=== PATIENT | male | born 1965 | race Caucasian/White ===

== ENCOUNTER 2018-01-12 16:08 | Emergency (ER) | payer MEDICARE ==
[~2018-01-12] VITALS: Ht 170.2 cm; Wt 64.0 kg
[2018-01-12] MEDS ORDERED: NAPROXEN 500 MG TABLET PO STA (16:41)
[2018-01-12] MEDS ORDERED: HYDROcodone/APAP 5/325MG 1 TAB TABLET PO ONE (16:45)
--- NOTE | 2018-01-12 16:47 | PHYS DOC ---
Adult General Chief Complaint Chief Complaint: HAND PROBLEM HPI HPI Patient is a 52 year old male who presents with 6 out of 10 left wrist pain that began a couple minutes prior to coming to the ED. Patient describes the pain as sharp and constant. He states the pain is worse on range of motion. He states the pain began while he was playing baseball and collided with another player. Review of Systems Review of Systems Constitutional: Denies fever or chills [] Musculoskeletal: Reports left wrist pain Integument: Denies rash or skin lesions [] Neurologic: Denies headache, focal weakness or sensory changes [] All other systems were reviewed and found to be within normal limits, except as documented in this note. Current Medications Current Medications Current Medications Medications (Trade) Dose Ordered Sig/Denisa Start Time Stop Time Status Last Admin Dose Admin Acetaminophen/ Hydrocodone Bitart (Lortab 5/325) 2 tab 1X ONCE 01/12/18 16:45 01/12/18 16:46 DC 01/12/18 16:59 2 TAB Naproxen (Naprosyn) 500 mg 1X STAT 01/12/18 16:41 01/12/18 16:46 DC 01/12/18 17:00 500 MG Allergies Allergies Allergies Coded Allergies Type Severity Reaction Last Updated Verified No Known Drug Allergies 01/12/18 No Physical Exam Physical Exam Constitutional: Well developed, well nourished, no acute distress, non-toxic appearance. [] Skin: Warm, dry, no erythema, no rash. [] Back: No tenderness, no CVA tenderness. [] Extremities: Left wrist appears obviously deformed and soft tissue swelling. Moderate scaphoid and distal radius tenderness. Limited range of motion to the left wrist especially dorsiflexion of the wrist due to pain. Full range of motion to the left fingers. Adequate radial, medial, ulnar sensation to the left hand. +2 left radial pulse. Cap refill less than 2 seconds the left fingers. Neurologic: Alert and oriented X 3, normal motor function, normal sensory function, no focal deficits noted. [] Psychologic: Affect normal, judgement normal, mood normal. [] Current Patient Data Vital Signs Vital Signs Date Time Temp Pulse Resp B/P (MAP) Pulse Ox O2 Delivery O2 Flow Rate FiO2 01/12/18 16:44 98.4 80 16 134/89 (104) 98 Room Air 98.4 EKG EKG [] Radiology/Procedures Radiology/Procedures []PROCEDURE: HAND LEFT 3V Indication:hit by a fast ball to the wrist, wrist deformity TECHNIQUE: 3 views of left hand COMPARISON:None FINDINGS: There is a complete transverse fracture through the border aspect of the distal radius with extension to the radiocarpal joint and radioulnar joint. Wrist swelling noted. IMPRESSION: As above. Electronically signed by: Ramin Chauhan DO (01/12/2018 4:54 PM) [facility] DICTATED and SIGNED BY: RAMIN CHAUHAN DO DATE: 01/12/181651 Course & Med Decision Making Course & Med Decision Making Pertinent Labs and Imaging studies reviewed. (See chart for details) This is a 52-year-old male patient presenting to the ED today complaining of left wrist injury. Patient was playing baseball and collided with another player. X-ray of the left wrist interpreted a complete transverse fracture through the border aspect of the distal radius with extension to the radiocarpal joint and radioulnar joint. Patient was placed in a sugar tong splint by the behavioral health tech, neurovascular exam is intact, ice elevation encouraged. Provided instructions to call orthopedic doctor on Sunday and set up a follow-up appointment. Dragon Disclaimer Dragon Disclaimer This electronic medical record was generated, in whole or in part, using a voice recognition dictation system. Departure Departure Impression: Primary Impression: Left radial fracture Disposition: 01 HOME, SELF-CARE Condition: STABLE Referrals: UNKNOWN PCP NAME (PCP) LADONNA CABELLO II, MD Call his office on Sunday and set up a follow-up appointment Patient Instructions: Wrist Fracture with [facility] Additional Instructions: You were evaluated in the emergency room and noted for left wrist fracture. We put you in a splint. Contact the provided orthopedic doctor on Sunday and set up a follow-up appointment. Ice elevate the extremity. Take the prescribed medicine as needed for pain. Do not drive or operate machinery on the medication Scripts Hydrocodone/Apap 5-325 (NORCO 5-325 TABLET) 1 Each Tablet 1 TAB PO Q4-6HRS, #20 TAB Prov: OC CATHERINE LUCILA 01/12/18 Problem Qualifiers Primary Impression: Left radial fracture Encounter type: initial encounter Radius location: distal Fracture type: closed Fracture morphology: unspecified fracture morphology Qualified Codes: S52.502A - Unspecified fracture of the lower end of left radius, initial encounter for closed fracture OC CATHERINE APRN Jan 12, 2018 16:46
--- NOTE | 2018-01-12 16:57 | RAD ---
Indication:hit by a fast ball to the wrist, wrist deformity TECHNIQUE: 3 views of left hand COMPARISON:None FINDINGS: There is a complete transverse fracture through the border aspect of the distal radius with extension to the radiocarpal joint and radioulnar joint. Wrist swelling noted. IMPRESSION: As above. Electronically signed by: Ramin Pollack DO (01/12/2018 4:54 PM) [facility]
[2018-01-12] MEDS ORDERED: HYDR-971 PO (17:26)
[2018-01-12 18:00] VITALS: BP 132/78
[2018-01-16] MEDS ORDERED: METO-239 PO (13:09)
[2018-01-16] MEDS ORDERED: LOSA50TA7 PO (13:09)
[2018-01-16] MEDS ORDERED: HYDR12.58 PO (13:10)
[2018-01-16] MEDS ORDERED: HYDR-2758 PO (13:12)
[2018-01-17] MEDS ORDERED: OXYC-323 PO (12:24)
== END 2018-01-12 18:37 | disposition home or self-care (01) ==
LOC: ER 16:08
DX: S52.502A Unspecified fracture of the lower end of left radius, initial encounter for closed fracture (principal); W52.XXXA Crushed, pushed or stepped on by crowd or human stampede, initial encounter; Y93.64 Activity, baseball; Y92.89 Other specified places as the place of occurrence of the external cause; Y99.8 Other external cause status
CPT/HCPCS: 29125; 73130; 99284-25

== ENCOUNTER → 2018-01-17 | Day surgery (SDC) | payer MEDICARE ==
[~2018-01-17] VITALS: Ht 170.2 cm; Wt 66.2 kg
[~2018-01-17] MED LIST: BUPIVACAINE MPF 0.5% 30 ML VIAL. IJ ONE; DEXAMETHASONE SOD PHOS 20 MG/5 ML VIAL. ONE; HYDR-2758 PO; HYDR-971 PO; HYDR12.58 PO; HYDROmorphone 2 MG/ML VIAL IV PRN; IV RINGERS,LACTATED 1000ML 1,000 ML IV SCH; LIDOCAINE 1% PF 2 ML VIAL. ID PRN; LOSA50TA7 PO; METO-239 PO; MIDAZOLAM HCL/PF 2 MG/2 ML VIAL. ONE; MORPHINE SULFATE 2 MG/ML VIAL. IV PRN; ONDANSETRON PF 4 MG/2 ML VIAL. IV PRN; ONDANSETRON PF 4 MG/2 ML VIAL. ONE; OXYC-323 PO; PROCHLORPERAZINE 10 MG/2 ML VIAL. IV PRN; PROPOFOL 20 ML IV ONE; ROPIVacaine 0.5% PF 30 ML VIAL. ONE; SEVOFLURANE 61 TO 120 MINUTES. IH ONE; ePHEDrine PF IN SALINE 50 MG/5 ML DISP.SYRIN IV ONE; fentaNYL PF VIAL 100 MCG/2 ML VIAL IV PRN; fentaNYL PF VIAL 100 MCG/2 ML VIAL ONE; oxyCODONE/APAP 5/325 1 TAB TABLET PO ONE
--- NOTE | 2018-01-17 12:23 | DISCH ---
DISCHARGE INSTRUCTIONS Condition on Discharge Condition on Discharge: Stable Activity After Discharge Activity Instructions for Disc: Other, see below (fine motor use of left hand only eating typing etc. no lifting hard grasp pushing pulling) Diet after Discharge Diet after Discharge: Regular Wound Incision Care Wound/Incision Care: Ice to area for comfort, Keep wound elevated, Do not change dressing Contacting the DRSid after DC Call your doctor for: Concerns you may have Follow-Up Follow up with: Trinity 7-10 days AVILA AN MD Jan 17, 2018 12:23
--- NOTE | 2018-01-17 12:29 | PDOC4 ---
Operative Note Operative Note Date of surgery: 01/17/2018 Preoperative diagnosis: Displaced intra-articular left distal radius fracture Postoperative diagnosis: Same Operative procedure: Operative reduction internal fixation 3 part intra- articular distal radius fracture with volar locking plate and screw fixation Surgeon: Trinity Assist: Raya Anesthesia: Gen. Estimated blood loss: Less than 5 mL Tourniquet time about 45 minutes her graft complications: None Operative indications: Jaswinder is a 52-year-old male who was injured in a softball game apparently taking a fastball to the wrist he was evaluated at the emergency department and subsequently in clinic with a displaced intra- articular distal radius fracture with severe dorsal angulation. I gone over with him risks benefits postoperative course of the recommended operative treatment downsides of nonoperative treatment including displacement at the joint and general angulation and shortening. The possibility of infection nerve or blood vessel damage nonhealing medical or other anesthetic consultations with the surgery stiffness in either case all his questions were answered he wishes to proceed with surgical evaluation and treatment. Operative text: Patient was identified procedure verified patient placed in the supine position on operating table. After adequate amounts of general anesthesia were administered the left upper extremity was prepped and draped in standard sterile fashion with an upper arm tourniquet after timeout was performed patient procedure identified and verified a volar Bharath approach was carried out to the distal radius subperiosteal dissection was carried out and reduction was carried out under fluoroscopic guidance with a standard titanium Maria Guadalupe distal radial locking plate. A nonlocking screw was placed in a sliding hole on the shaft and the plate was situated locking screws were placed individually under fluoroscopic guidance to ensure good alignment and no joint penetration distal row was accomplished first proximal row second and shaft fixation carried out finely with reduction and placement of all hardware checked under multiple fluoroscopic views found to be near anatomic and reduction full range of motion pronation supination and alignment at the distal radial ulnar joint was noted as well. Thorough irrigation carried out normal saline solution closure accomplished with buried Vicryl suture subcuticular Monocryl Steri-Strips and Mastisol followed by a well-padded volar splint were applied fingers were noted be warm pink following deflation of tourniquet patient was returned recovery room in stable condition having tolerated procedure well AVILA AN MD Jan 17, 2018 12:29
[2018-01-17 12:53] VITALS: BP 144/82
== END | disposition home or self-care (01) ==
LOC: SURG 08:44
PROVIDERS: ATTEND Orthopaedic Surgery
DX: S52.572A Other intraarticular fracture of lower end of left radius, initial encounter for closed fracture (principal); Y93.64 Activity, baseball; Y93.89 Activity, other specified; Y92.89 Other specified places as the place of occurrence of the external cause; Y99.8 Other external cause status; E78.00 Pure hypercholesterolemia, unspecified; I10 Essential (primary) hypertension
CPT/HCPCS: 25608; 76000; C1713; J0690; J1100; J2250; J2405; J2704; J3010; J3490; A7015; J2795; J7120